=== PATIENT | female | born 1970 | race Hispanic/Latino ===

== ENCOUNTER 2017-12-08 23:03 | Emergency (ER) | payer BC | END 2017-12-08 23:10 | disposition left against medical advice (07) | LOC: ERS 23:03 | DX: Z53.21 Procedure and treatment not carried out due to patient leaving prior to being seen by health care provider (principal) ==

== ENCOUNTER 2018-10-24 22:27 | Emergency (ER) | payer BC ==
[2018-10-24] MEDS ORDERED: Ondansetron ODT 8 MG TAB ONE (23:07)
[2018-10-24] MEDS ORDERED: Acetaminophen 500 MG TAB ONE (23:07)
== END 2018-10-24 23:48 | disposition home or self-care (01) ==
LOC: ERS 22:27
DX: R11.0 Nausea (principal); I10 Essential (primary) hypertension; D64.9 Anemia, unspecified; Z79.899 Other long term (current) drug therapy
CPT/HCPCS: 93005